=== PATIENT | male | born 1985 | race Caucasian/White ===

== ENCOUNTER → 2016-05-20 | Outpatient (CLI) | payer OTHER ==
[~2016-05-20] MED LIST: CEPHALEXIN500 M1 PO; DOXYCYCLINE 10100 MG PO; PROAMATINE 5MG T5 MG PO; PROVENTIL0.09 MG/A1 IH; TENORMIN 2525 MG/TAB PO
== END ==
LOC: COL.RAD 07:01
DX: M94.8X6 Other specified disorders of cartilage, lower leg (principal); M25.561 Pain in right knee; M25.562 Pain in left knee; Z87.828 Personal history of other (healed) physical injury and trauma